=== PATIENT | female | born 1995 | race Caucasian/White ===

== ENCOUNTER 2017-02-09 14:26 | Outpatient (CLI) ==
[2013-11-25 10:22] VITALS: BMI 23.9
== END 2017-02-09 14:27 | disposition home or self-care (01) ==
LOC: AMBL 14:26
PROVIDERS: ATTEND Family Medicine
DX: M25.512 Pain in left shoulder (principal); H93.12 Tinnitus, left ear; V43.52XA Car driver injured in collision with other type car in traffic accident, initial encounter